=== PATIENT | female | born 1970 | race Caucasian/White ===

== ENCOUNTER 2016-10-04 16:21 | Emergency (ER) | payer OTHER ==
[~2016-10-04] VITALS: Ht 170.2 cm; Wt 136.1 kg
[2016-10-04 16:21] VITALS: BP_SYST 132
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
--- NOTE | 2016-10-04 16:30 | NUR ---
REPORT GIVEN TO THIERNO GAVIRIA
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
--- NOTE | 2016-10-04 17:27 | NUR ---
Note [email or web address] in EDM - 10/04/16 at 1731 by [email or web address] Patient given written and verbal discharge instructions and verbalizes understanding. ER discussed with patient the results and treatment provided. Patient in stable condition. ID arm band removed. Rx of Tylenol, Flagyl given. Patient educated on pain management and to follow up with PMD. Pain Scale 3/10 and tolerable. Opportunity for questions provided and answered.
[2016-10-04] MEDS ORDERED: KETOROLAC TROMETHAMINE 60 MG/2 ML VIAL IM ONE (18:30)
[2016-10-04] MEDS ORDERED: LORazepam 2 MG/ML VIAL (FOR ER USE) IM ONE (18:30)
--- NOTE | 2016-10-04 18:46 | NUR ---
Admin Toradol and Ativan IM. pt [facility] well. is at bedside. He will drive pt home
--- NOTE | 2016-10-04 19:05 | NUR ---
at bedside evalauting pt prior to discharge
[2016-10-04 19:10] VITALS: BP_SYST 130
--- NOTE | 2016-10-04 19:15 | NUR ---
Patient given written and verbal discharge instructions and verbalizes understanding. ER MD Patel discussed with patient the results and treatment provided. Patient in stable condition. ID arm band removed. Rx of motrin given. Patient educated on pain management and to follow up with PMD. Pain Scale 0/10 Opportunity for questions provided and answered.
== END 2016-10-04 19:15 | disposition home or self-care (01) ==
LOC: SED 16:21
DX: S16.1XXA Strain of muscle, fascia and tendon at neck level, initial encounter (principal); S20.219A Contusion of unspecified front wall of thorax, initial encounter; R42 Dizziness and giddiness; Z90.49 Acquired absence of other specified parts of digestive tract; V89.2XXA Person injured in unspecified motor-vehicle accident, traffic, initial encounter; Y93.89 Activity, other specified; Y99.8 Other external cause status; Y92.89 Other specified places as the place of occurrence of the external cause
CPT/HCPCS: 70450; 71010; 72125; 81025; 96372; 99284; J1885; J2060